=== PATIENT | male | born 1975 | race Caucasian/White ===

== ENCOUNTER 2021-02-02 10:08 | Emergency (ER) | payer BC ==
[2021-02-02 10:57] VITALS: TEMP 98.3; BMI 27.8
[2021-02-02] MEDS ORDERED: CASIRIVIMAB/IMDEVIMAB 10 ML in SODIUM CHLORIDE 100 ML IVPB ONE (11:16)
[2021-02-02 11:44] LABS: BASO % 0.7 % (0-2.0); EOS % 0.3 % (0-4.5); HEMOGLOBIN 13.3 GM/dL (11.7-16.9); LYMPH % 15.5 % (8-40); MCH 30.3 pg (25.7-33.7); MCHC 34.2 g/dl (32.0-35.9); MEAN CELL VOLUME 88.6 fl (80-96); MEAN PLT VOLUME 8.3 fl (7.5-11.1); NEUT % 71.5 % (42.8-82.8); PLATELET COUNT 230 10^3/uL (134-434); RDW 13.8 % (11.9-15.9); WHITE BLOOD COUNT 4.9 K/mm3 (4.0-10.0)
[2021-02-02 12:07] LABS: ALBUMIN 4.1 g/dl (3.4-5.0); BLOOD UREA NITROGEN 9.8 mg/dL (7-18)
[2021-02-02 12:10] LABS: CREATININE 0.9 mg/dL (0.55-1.3)
[2021-02-02 12:12] LABS: BILIRUBIN,TOTAL 0.3 mg/dL (0.2-1); TOT PROT 7.5 g/dl (6.4-8.2)
[2021-02-02 14:22] VITALS: BP 107/63; PULSE 83
== END 2021-02-02 14:23 | disposition home or self-care (01) ==
LOC: JER 10:08
PROC: 3E033GC Introduction of Other Therapeutic Substance into Peripheral Vein, Percutaneous Approach (ICD-10-PCS; principal; 2021-02-02)
DX: U07.1 COVID-19 (principal)
CPT/HCPCS: 36415; 80053; 85025; 99284-25; M0240; Q0240